=== PATIENT | female | born 1955 | race Asian ===

== ENCOUNTER 2017-06-08 12:55 | Emergency (ER) | payer OTHER ==
[2017-06-08 13:14] VITALS: BP 124/59
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
[2017-06-08] MEDS ORDERED: NORCO 5/325 PO ONE (15:57)
[2017-06-08] MEDS ORDERED: FLEXERIL PO ONE (15:57)
== END 2017-06-08 17:17 | disposition home or self-care (01) ==
LOC: ED 12:55
DX: S16.1XXA Strain of muscle, fascia and tendon at neck level, initial encounter (principal); R07.89 Other chest pain; M54.5 Low back pain; V89.2XXA Person injured in unspecified motor-vehicle accident, traffic, initial encounter; Y93.89 Activity, other specified; Y99.8 Other external cause status; Y92.410 Unspecified street and highway as the place of occurrence of the external cause
CPT/HCPCS: 93005; 93010; 99282